=== PATIENT | female | born 1990 | race Caucasian/White ===

== ENCOUNTER 2016-11-05 13:38 | Emergency (ER) | payer OTHER ==
[2016-11-05] MEDS ORDERED: SODIUM CHLORIDE 0.9% 1,000 ML IV ONE (14:09)
[2016-11-05] MEDS ORDERED: ONDANSETRON 4 MG/2 ML VIAL IVP STA (14:09)
[2016-11-05 14:32] LABS: Basophils # (A) 0.1 k/uL (0-0.2); Basophils % (A) 1 %; CH 31.7; CHCM 34.3; Eosinophils # (A) 0.2 k/uL (0-0.7); Eosinophils % (A) 1 %; HCT 44.1 % (34.0-46.0); HDW 2.18; HGB 14.8 gm/dL (11.4-16.0); Luc % (Auto) 1; Lymphocytes # (A) 1.8 k/uL (1.0-4.8); Lymphocytes % (A) 14 %; MCH 31.1 pg (25.0-35.0); MCHC 33.5 g/dL (31.0-37.0); Mean Platelet Volume 6.9; Monocytes # (A) 0.3 k/uL (0-1.0); Monocytes % (A) 3 %; Neutrophils # (A) 10.5 k/uL (1.3-7.7); Neutrophils % (A) 81 %; RBC 4.74 m/uL (3.80-5.40); RDW 14.1 % (11.5-15.5); WBC (Perox) 12.18
[2016-11-05 14:44] LABS: ALT 27 U/L (9-52); AST 22 U/L (14-36); Alkaline Phosphatase 82 U/L (38-126); Anion Gap 13 mmol/L; Blood Urea Nitrogen 15 mg/dL (7-17); Calcium 9.6 mg/dL (8.4-10.2); Carbon Dioxide 23 mmol/L (22-30); Chloride 103 mmol/L (98-107); Glucose 105 mg/dL (74-99); Non-African American GFR(MDRD) >60 (>60 ml/min/1.73 sqM); Potassium 4.1 mmol/L (3.5-5.1); Sodium 139 mmol/L (137-145); Total Bilirubin 0.9 mg/dL (0.2-1.3); Total Protein 7.8 g/dL (6.3-8.2)
--- NOTE | 2016-11-05 14:48 | ED ---
Abdominal Pain HPI - General Chief Complaint: Abdominal Pain Stated Complaint: Abd Pain Time Seen by Provider: 11/05/16 13:48 Source: patient Mode of arrival: ambulatory Limitations: no limitations - History of Present Illness Initial Comments: 26-year-old female with past medical history of one presented for evaluation of lower abdominal cramping that started at 11 AM this morning. She states that onset was gradual and she described as cramping that she thought was more consistent with her. However it continued to progressively worsen with radiation around to the bilateral flanks in the lower back. States is associated nausea and vomiting without associated vaginal bleeding, dysuria, diarrhea, constipation, fevers, or chills. She denies previous a having similar symptoms to this. She states that there is possibility she could be at this time. - Related Data Home Medications Medication Instructions Recorded Confirmed No Known Home Medications [No 11/05/16 11/05/16 Known Home Medications] Allergies Allergy/AdvReac Type Severity Reaction Status Date / Time shellfish derived [Shellfish] Allergy Swelling Verified 11/05/16 14:12 Review of Systems ROS Statement: Those systems with pertinent positive or pertinent negative responses have been documented in the HPI. ROS Other: All systems not noted in ROS Statement are negative. Constitutional: Denies: fever, chills Eyes: Denies: eye pain, eye discharge ENT: Denies: ear pain, throat pain Respiratory: Denies: cough, dyspnea Cardiovascular: Denies: chest pain, palpitations Endocrine: Denies: fatigue, heat or cold intolerance Gastrointestinal: Reports: abdominal pain, nausea, vomiting. Denies: diarrhea, constipation, hematemesis, melena, hematochezia Genitourinary: Denies: urgency, dysuria, frequency, hematuria Musculoskeletal: Denies: back pain, joint swelling, arthralgia, myalgia Skin: Denies: rash, lesions Neurological: Denies: headache, weakness Psychiatric: Denies: anxiety, depression Hematological/Lymphatic: Denies: easy bleeding, easy bruising Past Medical History Past Medical History: No Reported History History of Any Multi-Drug Resistant Organisms: None Reported Past Surgical History: Section Past Anesthesia/Blood Transfusion Reactions: No Reported Reaction Past Psychological History: No Psychological Hx Reported Smoking Status: Current every day smoker Past Alcohol Use History: Rare Past Drug Use History: None Reported - Past Family History Father Family Medical History: No Reported History General Exam Limitations: no limitations General appearance: alert, in no apparent distress Head exam: Present: atraumatic, normocephalic, normal inspection Eye exam: Present: normal appearance, PERRL, EOMI. Absent: scleral icterus, conjunctival injection, periorbital swelling ENT exam: Present: normal exam, mucous membranes moist Neck exam: Present: normal inspection. Absent: tenderness, meningismus, lymphadenopathy Respiratory exam: Present: normal lung sounds bilaterally. Absent: respiratory distress, wheezes, rales, rhonchi, stridor Cardiovascular Exam: Present: regular rate, normal rhythm, normal heart sounds. Absent: systolic murmur, diastolic murmur, rubs, gallop, clicks GI/Abdominal exam: Present: soft, tenderness (Epigastric and lower abdomen), normal bowel sounds. Absent: distended, guarding, rebound, rigid Rectal exam: Present: deferred Extremities exam: Present: normal inspection, full ROM, normal capillary refill. Absent: tenderness, pedal edema, joint swelling, calf tenderness Back exam: Present: normal inspection Neurological exam: Present: alert, oriented X3, CN II-XII intact Psychiatric exam: Present: normal affect, normal mood Skin exam: Present: warm, dry, intact, normal color. Absent: rash Course Vital Signs 11/05/16 11/05/16 11/05/16 13:40 13:54 14:36 Temperature 97.4 F L 97.8 F Pulse Rate 80 67 Respiratory 20 18 Rate Blood Pressure 134/61 137/74 O2 Sat by Pulse 100 97 Oximetry 11/05/16 11/05/16 15:21 16:29 Temperature Pulse Rate 61 64 Respiratory 18 18 Rate Blood Pressure 102/52 104/59 O2 Sat by Pulse 99 98 Oximetry Medical Decision Making - Medical Decision Making 26-year-old female with past history of a previous presented for evaluation of suprapubic/lower abdominal pain since 11 AM this morning. Onset was gradual and progressively worsened throughout the morning and afternoon. There is associated nausea and vomiting. On physical examination the patient is resting comfortably in bed however she does have an emesis been in front of her that she has used once. Abdomen is soft peritoneal signs of guarding, rigidity, or rebound however there is tenderness to the bilateral lower quadrants. Remainder of exam is benign. Concern for urinary tract infection versus ectopic versus pyelonephritis and will obtain labs and urine. Labs are significant for large amounts of hematuria. There is no indication of urinary tract infection however and the test is negative. Given these results a CT abdomen and pelvis without contrast was ordered which was negative for obstructive uropathy. The appendix was visualized with an appendicolith however it was a normal-appearing appendix. The patient was reevaluated multiple times during this period and she continued to have pain despite multiple doses of pain control. She is informed of all results and initially was amenable to admission. However after discussion with her significant other and family member she was unable to find a cook frozen dessert for her child and stated that she would like to leave. She was informed of all potential competitions that could result of her leaving up to and including . She was advised that she could should and could return to the emergency department if her symptoms should worsen or persist and she was given specific instructions for doing so. She was further informed that she would be leaving AGAINST MEDICAL ADVICE and would have to fill all appropriate paperwork. The patient acknowledged an understanding of this information and agreed with this plan of care. - Lab Data Result diagrams: 11/05/16 14:21 11/05/16 14:21 Lab Results 11/05/16 11/05/16 11/05/16 Range/Units 14:21 14:21 14:21 WBC 13.0 H (3.8-10.6) k/uL RBC 4.74 (3.80-5.40) m/uL Hgb 14.8 (11.4-16.0) gm/dL Hct 44.1 (34.0-46.0) % MCV 93.0 (80.0-100.0) fL MCH 31.1 (25.0-35.0) pg MCHC 33.5 (31.0-37.0) g/dL RDW 14.1 (11.5-15.5) % Plt Count 274 (150-450) k/uL Neutrophils % 81 % Lymphocytes % 14 % Monocytes % 3 % Eosinophils % 1 % Basophils % 1 % Neutrophils # 10.5 H (1.3-7.7) k/uL Lymphocytes # 1.8 (1.0-4.8) k/uL Monocytes # 0.3 (0-1.0) k/uL Eosinophils # 0.2 (0-0.7) k/uL Basophils # 0.1 (0-0.2) k/uL Sodium 139 (137-145) mmol/L Potassium 4.1 (3.5-5.1) mmol/L Chloride 103 (98-107) mmol/L Carbon Dioxide 23 (22-30) mmol/L Anion Gap 13 mmol/L BUN 15 (7-17) mg/dL Creatinine 0.61 (0.52-1.04) mg/dL Est GFR (MDRD) Af Amer >60 (>60 ml/min/1.73 sqM) Est GFR (MDRD) Non-Af >60 (>60 ml/min/1.73 sqM) Glucose 105 H (74-99) mg/dL Calcium 9.6 (8.4-10.2) mg/dL Total Bilirubin 0.9 (0.2-1.3) mg/dL AST 22 (14-36) U/L ALT 27 (9-52) U/L Alkaline Phosphatase 82 (38-126) U/L Total Protein 7.8 (6.3-8.2) g/dL Albumin 4.7 (3.5-5.0) g/dL Lipase 82 (23-300) U/L HCG, Qual Not Detected Urine Color Urine Appearance (Clear) Urine pH (5.0-8.0) Ur Specific [place] (1.001-1.035) Urine Protein (Negative) Urine Glucose (UA) (Negative) Urine Ketones (Negative) Urine Blood (Negative) Urine Nitrite (Negative) Urine Bilirubin (Negative) Urine Urobilinogen (<2.0) mg/dL Ur Leukocyte Esterase (Negative) Urine RBC (0-5) /hpf Urine WBC (0-5) /hpf Urine WBC Clumps (None) /hpf Ur Squamous Epith Cells (0-4) /hpf Urine Mucus (None) /hpf 11/05/16 Range/Units 15:47 WBC (3.8-10.6) k/uL RBC (3.80-5.40) m/uL Hgb (11.4-16.0) gm/dL Hct (34.0-46.0) % MCV (80.0-100.0) fL MCH (25.0-35.0) pg MCHC (31.0-37.0) g/dL RDW (11.5-15.5) % Plt Count (150-450) k/uL Neutrophils % % Lymphocytes % % Monocytes % % Eosinophils % % Basophils % % Neutrophils # (1.3-7.7) k/uL Lymphocytes # (1.0-4.8) k/uL Monocytes # (0-1.0) k/uL Eosinophils # (0-0.7) k/uL Basophils # (0-0.2) k/uL Sodium (137-145) mmol/L Potassium (3.5-5.1) mmol/L Chloride (98-107) mmol/L Carbon Dioxide (22-30) mmol/L Anion Gap mmol/L BUN (7-17) mg/dL Creatinine (0.52-1.04) mg/dL Est GFR (MDRD) Af Amer (>60 ml/min/1.73 sqM) Est GFR (MDRD) Non-Af (>60 ml/min/1.73 sqM) Glucose (74-99) mg/dL Calcium (8.4-10.2) mg/dL Total Bilirubin (0.2-1.3) mg/dL AST (14-36) U/L ALT (9-52) U/L Alkaline Phosphatase (38-126) U/L Total Protein (6.3-8.2) g/dL Albumin (3.5-5.0) g/dL Lipase (23-300) U/L HCG, Qual Urine Color Light Red Urine Appearance Cloudy H (Clear) Urine pH 6.0 (5.0-8.0) Ur Specific [place] 1.025 (1.001-1.035) Urine Protein 2+ H (Negative) Urine Glucose (UA) Negative (Negative) Urine Ketones 3+ H (Negative) Urine Blood Large H (Negative) Urine Nitrite Negative (Negative) Urine Bilirubin Negative (Negative) Urine Urobilinogen 2.0 (<2.0) mg/dL Ur Leukocyte Esterase Trace H (Negative) Urine RBC >182 H (0-5) /hpf Urine WBC 6 H (0-5) /hpf Urine WBC Clumps Occasional H (None) /hpf Ur Squamous Epith Cells 7 H (0-4) /hpf Urine Mucus Many H (None) /hpf Disposition Clinical Impression: Intractable abdominal pain, Nausea and vomiting, Hematuria Disposition: Left Against Medical Advice Condition: Stable Instructions: Kidney Stones (ED), Hematuria (ED), Acute Abdominal Pain (ED), Abdominal Pain (ED) Additional Instructions: Although you're leaving AGAINST MEDICAL ADVICE it is advised to follow up with your primary care physician tomorrow. If you cannot see your primary care physician tomorrow you must come back to the ED within 24 hours for repeat abdominal examination. If your symptoms should worsen or persist overnight you must come back to the ED. If he should develop nausea or vomiting that he can' t control this is also an indication to return to the emergency department. If your abdomen should become distended, firm, or the pain should become unbearable he must return to the emergency department. Please call your primary care doctor as early as possible tomorrow morning. Referrals: None,Stated [Primary Care Provider] - 1-2 days Time of Disposition: 18:37
[2016-11-05] MEDS ORDERED: KETOROLAC 30 MG/ML 1 ML VIAL IVP STA (15:13)
[2016-11-05] MEDS ORDERED: MORPHINE SULFATE 4 MG/ML SYRINGE IVP STA ×2 (15:13→16:43)
[2016-11-05 16:17] LABS: Appearance,Urine Cloudy (Clear); Bilirubin,Urine Negative (Negative); Glucose,Urine (UA) Negative (Negative); Ketones,Urine 3+ (Negative); Leukocyte Esterase,Urine Trace (Negative); Mucus,Urine Many /hpf; Nitrite,Urine Negative (Negative); Particle Count 8781; Protein,Urine 2+ (Negative); RBC,Urine >182 /hpf (0-5); Specific Gravity,Urine 1.025 (1.001-1.035); Squamous Epithelial Cell,Urine 7 /hpf (0-4); UA Billing (MACRO vs. MICRO) MICRO; WBC,Urine 6 /hpf (0-5)
--- NOTE | 2016-11-05 17:32 | CT ---
EXAMINATION TYPE: CT renal stones wo con DATE OF EXAM: 11/05/2016 COMPARISON: NONE HISTORY: 26-year-old female with bilateral pelvic and flank pain. TECHNIQUE: Contiguous axial scanning of the abdomen and pelvis without IV contrast. Coronal and sagit diego reconstructions performed. CT DLP: 759.00 mGycm Automated exposure control for dose reduction was used. FINDINGS: The heart is normal size without pericardial effusion. Lung bases are clear without pleural effusion. Noncontrast appearance of the liver, gallbladder, adrenal glands, spleen, and pancreas show no gross abnormality. Some slight increased areas of density in the region of the medullary appearance suggests some concen trated renal salts. No discrete renal calculus is seen and no hydronephrosis No definite suspicious calcification seen along the course of either ureter. Scattered nonenlarged mesenteric lymph nodes. No dilated small bowel, free fluid, or free air. Normal appendix is visualized with a tiny 4 mm appendicolith. No significant stool burden. Bladder is partially urine distended. Bilateral pelvic phleboliths are noted. Uterus and both ovaries are visualized. No abnormal fluid collection in the pelvis. Bones: No osseous destructive process. IMPRESSION: SUGGESTION OF SOME FAINT CONCENTRATING RENAL SALTS IN THE REGION OF THE MEDULLARY PYRAMIDS. NO DISCR ETE RENAL CALCULUS OR HYDRONEPHROSIS.
[2016-11-05] MEDS ORDERED: HYDROcodone/APAP 5-325MG 1 EACH TAB PO STA (19:06)
[2016-11-05 19:15] VITALS: BP 109/59; PULSE 57; RESP 16; TEMP 98.9
== END 2016-11-05 19:15 | disposition left against medical advice (07) ==
LOC: EC 13:38
DX: R10.30 Lower abdominal pain, unspecified (principal); R11.2 Nausea with vomiting, unspecified; R31.9 Hematuria, unspecified; M54.5 Low back pain; K38.1 Appendicular concretions; F17.200 Nicotine dependence, unspecified, uncomplicated; Z91.013 Allergy to seafood; Z98.890 Other specified postprocedural states
CPT/HCPCS: 99284; 96374; 96375 ×2; 96376; 96361 ×4; 36415; 80053; 83690; 85025; 81001; 84703; 74150; J2270; J2405; J1885

== ENCOUNTER 2020-11-07 14:03 | Emergency (ER) | payer OTHER ==
[2020-11-07] MEDS ORDERED: METOCLOPRAMIDE 5 MG/ML 2 ML VIAL IVP STA (14:48)
[2020-11-07] MEDS ORDERED: diphenhydrAMINE 50 MG/ML 1 ML VIAL IVP STA (14:48)
[2020-11-07] MEDS ORDERED: SODIUM CHLORIDE 0.9% 1,000 ML IV STA (14:48)
[2020-11-07] MEDS ORDERED: FAMOTIDINE 20 MG/2 ML VIAL IV STA (14:48)
[2020-11-07] MEDS ORDERED: KETOROLAC 15 MG/ML 1 ML VIAL IVP STA (14:54)
--- NOTE | 2020-11-07 15:34 | ED ---
Abdominal Pain HPI - General Chief Complaint: Abdominal Pain Stated Complaint: Abdominal Pain Time Seen by Provider: 11/07/20 14:18 Source: patient Mode of arrival: ambulatory Limitations: no limitations - History of Present Illness Initial Comments: 30-year-old female presents to emergency prompt with a chief complaint of abdominal pain. Patient reports she experienced similar pain about 4 years ago and it felt exactly like this when she was on her menstrual period. Patient reports currently she is on her menstrual period and the pain was somewhat of a sudden onset located in the lower abdominal region. Patient reports it is slightly worse on the right side. She reports nausea and multiple episodes of nonbilious and nonbloody vomiting. States the pain was sharp until the paramedics arrived and she was given symptomatically. She denies any diarrhea or constipation. Denies any possibility of at this time. Denies any vaginal discharge, itching or foul smell. Denies dysuria, increased urgency or frequency. No previous abdominal surgeries aside from a . - Related Data Home Medications Medication Instructions Recorded Confirmed Acetaminophen Tab [Tylenol Tab] 500 mg PO Q6H PRN 11/07/20 11/07/20 Allergies Allergy/AdvReac Type Severity Reaction Status Date / Time shellfish derived [Shellfish] Allergy Swelling Verified 11/07/20 14:45 Review of Systems ROS Statement: Those systems with pertinent positive or pertinent negative responses have been documented in the HPI. ROS Other: All systems not noted in ROS Statement are negative. Past Medical History Past Medical History: No Reported History History of Any Multi-Drug Resistant Organisms: None Reported Past Surgical History: Section Past Anesthesia/Blood Transfusion Reactions: No Reported Reaction Past Psychological History: No Psychological Hx Reported Smoking Status: Current every day smoker Past Alcohol Use History: Rare Past Drug Use History: None Reported - Past Family History Father Family Medical History: No Reported History General Exam Limitations: no limitations General appearance: alert, in no apparent distress Head exam: Present: atraumatic, normocephalic, normal inspection Eye exam: Present: normal appearance, PERRL, EOMI Pupils: Present: normal accommodation ENT exam: Present: normal exam, normal oropharynx, mucous membranes moist Neck exam: Present: normal inspection, full ROM. Absent: tenderness Respiratory exam: Present: normal lung sounds bilaterally. Absent: respiratory distress, wheezes, rales, rhonchi, stridor Cardiovascular Exam: Present: regular rate, normal rhythm, normal heart sounds. Absent: systolic murmur GI/Abdominal exam: Present: soft, tenderness (Mild lower abdominal tenderness). Absent: distended Extremities exam: Present: normal inspection, full ROM, normal capillary refill. Absent: tenderness, pedal edema, joint swelling Back exam: Present: normal inspection, full ROM. Absent: tenderness, CVA tenderness (R), CVA tenderness (L) Neurological exam: Present: alert, oriented X3 Psychiatric exam: Present: normal affect, normal mood Skin exam: Present: warm, dry, intact, normal color Course Vital Signs 11/07/20 14:14 Temperature 97.6 F Pulse Rate 64 Respiratory 18 Rate Blood Pressure 116/55 O2 Sat by Pulse 98 Oximetry Medical Decision Making - Medical Decision Making 30-year-old female presents to emergency prompt with a chief complaint of abdominal pain. On physical examination, mostly lower abdominal tenderness. Transvaginal ultrasound performed to rule out an ovarian torsion. No acute findings on the ultrasound. CBC reveals mild leukocytosis which I suspect is reactive secondary to vomiting. UA positive for hematuria but no signs of urinary tract infection. Ketones also noted. Mild elevation in BUN. Likely suggesting dehydration. Patient was given IV bolus fluids. Patient was not given any analgesics in the emergency department only antiemetics. Advised the patient to follow up with a health care technician. Return parameters were thoroughly discussed with patient understanding and agreeable. Case discussed with Dr. Jeronimo. - Lab Data Result diagrams: 11/07/20 15:20 11/07/20 15:20 Lab Results 11/07/20 11/07/20 11/07/20 Range/Units 15:20 15:20 15:20 WBC 12.9 H (3.8-10.6) k/uL RBC 3.78 L (3.80-5.40) m/uL Hgb 12.6 (11.4-16.0) gm/dL Hct 36.2 (34.0-46.0) % MCV 95.7 (80.0-100.0) fL MCH 33.2 (25.0-35.0) pg MCHC 34.7 (31.0-37.0) g/dL RDW 12.5 (11.5-15.5) % Plt Count 216 (150-450) k/uL MPV 8.1 Neutrophils % 84 % Lymphocytes % 12 % Monocytes % 3 % Eosinophils % 0 % Basophils % 0 % Neutrophils # 10.8 H (1.3-7.7) k/uL Lymphocytes # 1.6 (1.0-4.8) k/uL Monocytes # 0.3 (0-1.0) k/uL Eosinophils # 0.1 (0-0.7) k/uL Basophils # 0.0 (0-0.2) k/uL Sodium 139 (137-145) mmol/L Potassium 3.9 (3.5-5.1) mmol/L Chloride 106 (98-107) mmol/L Carbon Dioxide 21 L (22-30) mmol/L Anion Gap 12 mmol/L BUN 19 H (7-17) mg/dL Creatinine 0.57 (0.52-1.04) mg/dL Est GFR (CKD-EPI)AfAm >90 (>60 ml/min/1.73 sqM) Est GFR (CKD-EPI)NonAf >90 (>60 ml/min/1.73 sqM) Glucose 120 H (74-99) mg/dL Calcium 9.4 (8.4-10.2) mg/dL Total Bilirubin 0.8 (0.2-1.3) mg/dL AST 24 (14-36) U/L ALT 12 (4-34) U/L Alkaline Phosphatase 54 (38-126) U/L Total Protein 7.1 (6.3-8.2) g/dL Albumin 4.4 (3.5-5.0) g/dL Amylase 55 (30-110) U/L Lipase 66 (23-300) U/L Urine Color Yellow Urine Appearance Cloudy H (Clear) Urine pH 6.0 (5.0-8.0) Ur Specific [place] 1.038 H (1.001-1.035) Urine Protein 2+ H (Negative) Urine Glucose (UA) Trace H (Negative) Urine Ketones 3+ H (Negative) Urine Blood Moderate H (Negative) Urine Nitrite Negative (Negative) Urine Bilirubin Negative (Negative) Urine Urobilinogen 4.0 (<2.0) mg/dL Ur Leukocyte Esterase Trace H (Negative) Urine RBC 87 H (0-5) /hpf Urine WBC 5 (0-5) /hpf Ur Squamous Epith Cells 2 (0-4) /hpf Urine Bacteria Rare H (None) /hpf Urine Mucus Many H (None) /hpf Disposition Clinical Impression: Abdominal pain Disposition: HOME SELF-CARE Condition: Stable Instructions (If sedation given, give patient instructions): Abdominal Pain (ED) Additional Instructions: Please return to the Emergency Department if symptoms worsen or any other concerns. Is patient prescribed a controlled substance at d/c from ED?: No Referrals: None,Stated [Primary Care Provider] - 1-2 days Derrick De Jesus DO [Doctor of Osteopathic Medicine] - 1-2 days Time of Disposition: 16:50
--- NOTE | 2020-11-07 15:44 | US ---
EXAMINATION TYPE: US transvaginal DATE OF EXAM: 11/07/2020 COMPARISON: NONE CLINICAL HISTORY: pelvic pain, concern for torsion. Generalized pelvic pain. TECHNIQUE: Transvaginal (TV) grayscale sonographic images were obtained of the pelvic structures. Co blanco Doppler and spectral waveform analysis were utilized.. Date of LMP: September 2020, EXAM MEASUREMENTS: Uterus: 7.5 x 3.7 x 3.1 cm Endometrial Stripe: 0.9 cm Right Ovary: 3.5 x 2.1 x 2.0 cm Left Ovary: 2.6 x 2.3 x 1.5 cm 1. Uterus: Anteverted Heterogenous 2. Endometrium: wnl 3. Right Ovary: complex lesion with peripheral vascular flow - 1.9 x 1.2 x 1.4 cm 4. Left Ovary: follicles Spectral, color and waveform doppler imaging shows good arterial and venous flow within the ovaries ; there is no evidence for ovarian torsion. 5. Bilateral Adnexa: wnl 6. Posterior cul-de-sac: no free fluid IMPRESSION: 1. No evidence of ovarian torsion. 2. Complex right ovarian follicle which may represent an involuting corpus luteum.
[2020-11-07 15:58] LABS: Basophils % (A) 0 %; Eosinophils # (A) 0.1 k/uL (0-0.7); Eosinophils % (A) 0 %; HCT 36.2 % (34.0-46.0); HGB 12.6 gm/dL (11.4-16.0); Lymphocytes # (A) 1.6 k/uL (1.0-4.8); Lymphocytes % (A) 12 %; MCH 33.2 pg (25.0-35.0); MCHC 34.7 g/dL (31.0-37.0); MCV 95.7 fL (80.0-100.0); Mean Platelet Volume 8.1; Monocytes # (A) 0.3 k/uL (0-1.0); Monocytes % (A) 3 %; Neutrophils # (A) 10.8 k/uL (1.3-7.7); Neutrophils % (A) 84 %; Platelet Count 216 k/uL (150-450); RBC 3.78 m/uL (3.80-5.40); RDW 12.5 % (11.5-15.5); WBC 12.9 k/uL (3.8-10.6)
[2020-11-07 16:10] LABS: ALT 12 U/L (4-34); AST 24 U/L (14-36); African American GFR (CKD) >90 (>60 ml/min/1.73 sqM); Albumin 4.4 g/dL (3.5-5.0); Alkaline Phosphatase 54 U/L (38-126); Amylase 55 U/L (30-110); Anion Gap 12 mmol/L; Blood Urea Nitrogen 19 mg/dL (7-17); Calcium 9.4 mg/dL (8.4-10.2); Carbon Dioxide 21 mmol/L (22-30); Chloride 106 mmol/L (98-107); Glucose 120 mg/dL (74-99); Lipase 66 U/L (23-300); Non-African American GFR(CKD) >90 (>60 ml/min/1.73 sqM); Potassium 3.9 mmol/L (3.5-5.1); Sodium 139 mmol/L (137-145); Total Bilirubin 0.8 mg/dL (0.2-1.3); Total Protein 7.1 g/dL (6.3-8.2)
[2020-11-07 16:11] LABS: Appearance,Urine Cloudy (Clear); Bacteria,Urine Rare /hpf; Bilirubin,Urine Negative (Negative); Blood,Urine Moderate (Negative); Color,Urine Yellow; Glucose,Urine (UA) Trace (Negative); Ketones,Urine 3+ (Negative); Leukocyte Esterase,Urine Trace (Negative); Mucus,Urine Many /hpf; Nitrite,Urine Negative (Negative); Protein,Urine 2+ (Negative); RBC,Urine 87 /hpf (0-5); Specific Gravity,Urine 1.038 (1.001-1.035); Squamous Epithelial Cell,Urine 2 /hpf (0-4); WBC,Urine 5 /hpf (0-5)
[2020-11-07 17:10] LABS: HCG,Qualitative Serum Not Detected
[2020-11-07 17:15] VITALS: BP 108/61; PULSE 52; RESP 16; TEMP 98.9
== END 2020-11-07 17:14 | disposition home or self-care (01) ==
LOC: EC 14:03
DX: R10.31 Right lower quadrant pain (principal); F17.200 Nicotine dependence, unspecified, uncomplicated
CPT/HCPCS: 99284; 96374; 96375 ×3; 96361; 36415; 80053; 82150; 83690; 85025; 81001; 84703; 93975; 76830; J1200; J2765; J1885

== ENCOUNTER → 2021-09-01 | Outpatient (CLI) | payer OTHER ==
--- NOTE | 2021-09-01 17:16 | US ---
EXAMINATION TYPE: Transabdominal DATE OF EXAM: 09/01/2021 4:34 PM COMPARISON: NONE CLINICAL HISTORY: Z36.89 CONFIRM GESTATIONAL AGE AND VIABILITY. Confirmation of dates. Positive beta hCG test. EXAM PERFORMED: Transabdominal (TA) EXAM MEASUREMENTS: GESTATIONAL AGE / DATING Physician Established: Not yet established Dates by LMP: (11weeks/6 days) EDC: 03/17/2022 Dates by First Scan: No previous this is first scan Dates by Current Scan for: (13weeks/6 days) EDC: 03/03/2022 MATERNAL ANATOMY Uterus: 12.2 x 1.7 x 9.9cm Right Ovary: 4.2 x 2.5 x 3.9cm Left Ovary: 3.9 x 2.5 x 1.9cm Post CDS / Adnexa: No abnormalities seen Presence of free fluid: No Presence of corpus luteal cyst: Yes measures approximately 1.5cm in Right Ovary Presence of subchorionic bleed: No GESTATION / SURVEY CRL:7.77 cm 13 weeks/6 days Yolk Sac (normal less than 6mm): Non vis on today's exam Heart Rate: 153 bpm Rhythm: Normal IUP: Viable IUP Date of LMP: 06/10/2021 Beta HcG (if available): Not available Viable IUP seen on today's exam Anteverted uterus. Single live intrauterine gestation confirmed as gestational sac and pole are present. No yolk sac is seen. Both ovaries are identified. Within the right ovary there is a 1.5 cm thin-walled cysts could reflect corpus luteal cyst. No suspicious extra ovarian adnexal lesion. IMPRESSION: Single live intrauterine gestation is confirmed, mean crown-rump length 7.8 cm correspond ing to 13 weeks 6 day old fetus.
== END | disposition home or self-care (01) ==
LOC: RADUSWWP 15:29
PROVIDERS: ATTEND Obstetrics & Gynecology
DX: Z36.89 Encounter for other specified antenatal screening (principal); Z3A.13 13 weeks gestation of pregnancy
CPT/HCPCS: 76801

== ENCOUNTER 2022-02-28 06:01 | Inpatient (IN) | payer OTHER ==
[2022-02-20 12:08] VITALS: BMI 33.6
--- NOTE | 2022-02-27 19:28 | P.HPOB ---
History of Present Illness H&P Date: 02/27/22 Chief Complaint: Repeat with tubal ligation This is a 31 y.o. female, 4, para 1, with an estimated date of confinement of 03/03/2022, estimated gestational age of 39-4/7 weeks, who presents for repeat low transverse section with bilateral tubal ligation for family planning. She has been feeling good movement and irregular contractions. Prental course has been uncomplicated. labs: Hepatitis B surface antigen-neg RPR-NR [id number] Blood type-A+ Antibody screen-neg Hemoglobin-13.3 Random glucose-86 1 hr. GTT-166; Repeat 1 hr. GTT-107 GBS-neg OBHx: . Hx 1 delivery due to failure to progress. History of 2 elective terminations. 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 Unemployed. Review of Systems Constitutional: Denies chills, Denies fever Eyes: denies blurred vision, denies pain Ears, nose, mouth and throat: Denies headache, Denies sore throat Cardiovascular: Denies chest pain, Denies shortness of breath Respiratory: Denies cough Gastrointestinal: Reports abdominal pain (irregular contractions) Genitourinary: Reports pelvic pain, Reports Musculoskeletal: Reports low back pain Integumentary: Denies pruritus, Denies rash Neurological: Denies numbness, Denies weakness Psychiatric: Denies anxiety, Denies depression Past Medical History Past Medical History: No Reported History History of Any Multi-Drug Resistant Organisms: None Reported Past Surgical History: Section Past Anesthesia/Blood Transfusion Reactions: No Reported Reaction Past Psychological History: No Psychological Hx Reported Smoking Status: Former smoker, Vaper Past Alcohol Use History: Rare Additional Past Alcohol Use History / Comment(s): Quit smoking over a year ago and started vaping "a limited amount." Rare alcohol use prior to , none now. Past Drug Use History: None Reported - Past Family History Father Family Medical History: No Reported History Medications and Allergies Home Medications Medication Instructions Recorded Confirmed Type Vit No.179/Iron/Folic 1 each PO DAILY 02/20/22 02/28/22 History [ Tablet] Allergies Allergy/AdvReac Type Severity Reaction Status Date / Time shellfish derived [Shellfish] Allergy Swelling Verified 02/28/22 06:21 Exam Osteopathic Statement: *. No significant issues noted on an osteopathic structural exam other than those noted in the History and Physical/Consult. HEENT: within normal limits Heart: regular rate and rhythm Lungs: clear to auscultation Abdomen: , non-tender Cervix: closed/60%/-2 heart tones: 140's by doppler Extremities: neg. Dixon's Results Result Diagrams: 02/28/22 06:25 Assessment and Plan (1) Previous section complicating Current Visit: No Status: Acute Code(s): O34.219 - MATERNAL CARE FOR UNSP TYPE SCAR FROM PREVIOUS DEL SNOMED Code(s): 015339994 (2) 39 weeks gestation of Current Visit: No Status: Acute Code(s): Z3A.39 - 39 WEEKS GESTATION OF SNOMED Code(s): 39446930 (3) Family planning Current Visit: No Status: Acute Code(s): Z30.09 - ENCOUNTER FOR OT GENERAL CNSL AND ADVICE ON CONTRACEPTION SNOMED Code(s): 010841557 Plan: Proceed with repeat delivery with bilateral partial salpingectomy. I have discussed the risks, benefits, and alternative therapies for the above- mentioned procedure and for both sedation/anesthesia as well as necessary blood products administration, if indicated, as they pertain to this patient. The patient has indicated her understanding and acceptance of the risks and procedures discussed.
[2022-02-28] MEDS ORDERED: CITRIC ACID-SODIUM CITRATE 15 ML CUP PO ONE (06:20)
[2022-02-28] MEDS ORDERED: LACTATED RINGERS 1,000 ML IV ONE (06:20)
[2022-02-28] MEDS ORDERED: LIDOCAINE 1% (10MG/ML) FOR IV START INTRADERMA PRN (06:20)
[2022-02-28 06:48] LABS: Basophils % (A) 0 %; Eosinophils # (A) 0.2 k/uL (0-0.7); Eosinophils % (A) 3 %; HCT 35.3 % (34.0-46.0); Lymphocytes # (A) 1.9 k/uL (1.0-4.8); Lymphocytes % (A) 25 %; MCHC 36.8 g/dL (31.0-37.0); MCV 92.4 fL (80.0-100.0); Mean Platelet Volume 8.7; Monocytes # (A) 0.3 k/uL (0-1.0); Monocytes % (A) 4 %; Neutrophils # (A) 4.8 k/uL (1.3-7.7); Neutrophils % (A) 65 %; Platelet Count 206 k/uL (150-450); RBC 3.82 m/uL (3.80-5.40); RDW 13.7 % (11.5-15.5); WBC 7.3 k/uL (3.8-10.6)
[2022-02-28] MEDS: LACTATED RINGERS 1,000 ML IV SCH (06:58)
[2022-02-28] MEDS ORDERED: fentaNYL (PF) 50 MCG/ML 2 ML AMP ONE (08:00)
[2022-02-28] MEDS ORDERED: KETOROLAC 15 MG/ML 1 ML VIAL ONE (08:00)
[2022-02-28] MEDS ORDERED: OXYTOCIN 30 UNITS/500 ML NS BAG IV ONE (08:00)
[2022-02-28] MEDS ORDERED: NALBUPHINE 10 MG/ML (1 ML AMP) ONE (08:00)
[2022-02-28] MEDS ORDERED: MIDAZOLAM 2 MG/2 ML VIAL ONE (08:00)
[2022-02-28] MEDS ORDERED: ONDANSETRON 4 MG/2 ML VIAL ONE (08:00)
[2022-02-28] MEDS ORDERED: MORPHINE SULFATE (PF) 0.3 MG/0.3 ML SYR ONE (08:00)
[2022-02-28] MEDS ORDERED: NALBUPHINE 10 MG/ML (1 ML AMP) IV PRN (08:41)
[2022-02-28] MEDS ORDERED: HYDROmorphone 0.5 MG/0.5 ML SYRINGE IVP PRN ×2 (08:41→08:54)
[2022-02-28] MEDS ORDERED: NALOXONE 0.4 MG/ML 1 ML VIAL IV PRN ×2 (08:41→08:54)
[2022-02-28] MEDS ORDERED: ONDANSETRON 4 MG/2 ML VIAL IVP PRN ×2 (08:41→08:54)
--- NOTE | 2022-02-28 08:52 | P.OP ---
Date of Procedure: 02/28/22 Preoperative Diagnosis: 1. Intrauterine at 39-4/7 weeks. 2. History of previous section. 3. Family-planning. Postoperative Diagnosis: Same Procedure(s) Performed: Repeat low transverse section with bilateral partial salpingectomy Anesthesia: spinal (Duramorph) Surgeon: Juju Ashby Feed Miller #1: Jay Ochoa Estimated Blood Loss (ml): 250 Pathology: other (Portions of right and left fallopian tubes) Condition: stable Disposition: floor Indications for Procedure: This is a 31-year-old female 4 para 1 at 39-4/7 weeks who presents for scheduled repeat section with bilateral partial salpingectomy for family planning. I have discussed the risks, benefits, and alternative therapies for the above- mentioned procedure and for both sedation/anesthesia as well as necessary blood products administration, if indicated, as they pertain to this patient. The patient has indicated her understanding and acceptance of the risks and procedures discussed. Operative Findings: A viable male infant is noted in the vertex presentation with scores of 8 at 1 minute and 9 at 5 minutes and infant weight of 8 lbs. 1 oz.. Normal uterus tubes and ovaries are noted. Description of Procedure: The patient is taken to the operating room where she is placed in the dorsal supine position with leftward tilt after spinal Duramorph anesthesia is given. She is prepped and draped in the normal sterile fashion. Skin was tested and found to be adequately anesthetized. A Pfannenstiel skin incision was made with a scalpel through the previous laparotomy scar. A second knife was used to carry the incision down to the underlying layer of fascia. The fascia was nicked in the midline with a scalpel and then extended laterally bilaterally with Baez scissors. The anterior lip of the fascia was grasped with 2 George clamps and then dissected off the underlying rectus muscle in the midline with Baez scissors. The inferior aspect of the fascial incision was grasped with 2 George clamps and dissected off the underlying rectus muscle and the midline with Baez scissors. Next the peritoneum layer was tented up with 2 hemostats and then entered sharply with the scalpel. The incision is extended superiorly and inferiorly with Metzenbaum scissors. Next a DeLee retractor is placed. The vesicouterine peritoneum is entered sharply with Metzenbaum scissors and extended laterally bilaterally with Metzenbaum scissors and then the bladder flap is pushed inferiorly. The lower uterine segment is incised in transverse fashion with the scalpel and then bluntly entered with a hemostat. Clear fluid is noted. The incision was then extended laterally bilaterally with 2 fingers. Next the 's head is delivered through the incision. Nose and mouth are bulb suctioned. The remainder of the is easily delivered and placed on mother's abdomen. Cord is clamped and cut. Infant is taken to warmer by nursing staff. Uterine fundus is gently massaged and placenta is delivered manually. Uterus is exteriorized and cleared of all clots and debris. Uterine incision is closed with 0 Vicryl suture in a running locked fashion. A second layer of 0 Vicryl suture is used in a running fashion for hemostasis. The vesicouterine peritoneum was noted to be hemostatic and was not reapproximated due to scarring. Attention is then turned to the tubes. The right fallopian tube is grasped in the midportion with a hemostat. The mesosalpinx is entered with Bovie cautery. 0 Vicryl suture is tied 2 times around both the proximal and distal portion of the tubes. The knuckle of tube was then removed with Metzenbaum scissors. The ends of the tubes are then cauterized with Bovie cautery. The same procedure is carried out on the left fallopian tube. Posterior cul-de-sac is suctioned of all clots and debris. Uterus is returned to the abdomen. Incision is noted to be hemostatic. Peritoneal layer is closed with 0 Vicryl suture in a running fashion. Muscle layer is reapproximated with 0 Vicryl suture in interrupted fashion. Fascia layer is then closed with 0 PDS suture with 2 sutures meeting in the midline and the knots buried in either side and in the midline. The subcutaneous tissue was then closed with 2-0 Vicryl suture. Skin layer was then closed with eulalia. All sponge and needle counts are correct. The patient is taken to recovery room in stable condition.
[2022-02-28] MEDS ORDERED: OXYTOCIN 30 UNITS/500 ML NS 30 UNIT in SALINE 1 500ML.BAG IV SCH (08:54)
[2022-02-28] MEDS ORDERED: diphenhydrAMINE 50 MG/ML 1 ML VIAL IVP PRN ×2 (08:54)
[2022-02-28] MEDS ORDERED: ZOLPIDEM 5 MG TAB PO PRN (08:54)
[2022-02-28] MEDS ORDERED: METOCLOPRAMIDE 5 MG/ML 2 ML VIAL IVP PRN (08:54)
[2022-02-28] MEDS ORDERED: diphenhydrAMINE 50 MG CAP PO PRN (08:54)
[2022-02-28] MEDS ORDERED: SIMETHICONE 80 MG CHEWABLE PO PRN (08:54)
[2022-02-28] MEDS ORDERED: diphenhydrAMINE 25 MG CAP PO PRN (08:54)
[2022-02-28] MEDS ORDERED: LANOLIN CREAM 5 GM TUBE TOPICAL PRN (08:54)
[2022-02-28] MEDS ORDERED: MEASLES-MUMPS-RUBELLA VACC/PF 12,500 UNIT/0.5 ML VIAL SQ ONE (08:54)
[2022-02-28] MEDS ORDERED: HYDROmorphone 1 MG/ML 1 ML SYRINGE IVP PRN (08:54)
[2022-02-28] MEDS: ACETAMINOPHEN TAB 500 MG TAB PO SCH ×2 (11:18→23:37)
[2022-02-28] MEDS: SENNOSIDES-DOCUSATE SODIUM 1 EACH TAB PO SCH ×2 (11:27→20:17)
[2022-02-28] MEDS: ACETAMINOPHEN IV (For NPO) 1,000 MG in EMPTY BAG 1 BAG IVPB SCH (11:28)
[2022-02-28] MEDS: KETOROLAC 15 MG/ML 1 ML VIAL IVP SCH ×2 (13:57→20:16)
[2022-02-28] MEDS: IBUPROFEN 600 MG TAB PO SCH (16:14)
[2022-03-01] MEDS: ACETAMINOPHEN IV (For NPO) 1,000 MG in EMPTY BAG 1 BAG IVPB SCH (01:57)
[2022-03-01] MEDS: LACTATED RINGERS 1,000 ML IV SCH (02:03)
[2022-03-01] MEDS: KETOROLAC 15 MG/ML 1 ML VIAL IVP SCH ×2 (04:33→15:46)
[2022-03-01] MEDS: IBUPROFEN 600 MG TAB PO SCH ×4 (05:16→23:44)
--- NOTE | 2022-03-01 07:31 | P.PN ---
Progress Note - Text Progress Note Date: 03/01/22 Postop day 1 from under spinal anesthesia with intrathecal morphine given for postop pain management. Patient is doing well. Pain is well controlled. On visual analog scale 4/10 Mild itching present No nausea or vomiting reported. No Headache or weakness and numbness in the legs. No complications from spinal anesthesia.
[2022-03-01 08:33] LABS: Basophils % (A) 0 %; Eosinophils # (A) 0.1 k/uL (0-0.7); Eosinophils % (A) 1 %; HCT 31.1 % (34.0-46.0); HGB 10.9 gm/dL (11.4-16.0); Lymphocytes # (A) 1.3 k/uL (1.0-4.8); Lymphocytes % (A) 14 %; MCH 33.1 pg (25.0-35.0); MCHC 34.9 g/dL (31.0-37.0); MCV 94.8 fL (80.0-100.0); Mean Platelet Volume 8.7; Monocytes # (A) 0.3 k/uL (0-1.0); Monocytes % (A) 4 %; Neutrophils # (A) 7.2 k/uL (1.3-7.7); Neutrophils % (A) 79 %; Platelet Count 170 k/uL (150-450); RBC 3.28 m/uL (3.80-5.40); RDW 13.6 % (11.5-15.5)
--- NOTE | 2022-03-01 09:14 | P.PNOBGPC ---
Subjective - Subjective Principal diagnosis: Status post repeat low transverse section with TL POD #1 Interval history: Patient is doing well. She is ambulating. She is passing flatus but no bowel movement yet. She has not been able to urinate yet. Pain is fairly well controlled. She is breast-feeding. Patient reports: Reports pain well controlled, Reports ambulating normally, Denies voiding normally [place]: doing well, nursing well Objective - Vital Signs Latest vital signs: Vital Signs Temp Pulse Resp BP Pulse Ox 03/01/22 04:00 97.9 F 64 15 114/63 03/01/22 00:00 97.7 F 68 15 120/69 96 02/28/22 20:00 97.6 F 67 19 138/90 98 02/28/22 16:00 98.0 F 61 16 110/56 95 02/28/22 15:00 16 98 02/28/22 13:00 97 02/28/22 11:05 96.3 F L 74 16 97/52 97 02/28/22 10:53 71 16 116/60 97 02/28/22 10:23 69 16 118/58 97 02/28/22 09:53 69 16 110/56 97 02/28/22 09:38 69 16 113/56 97 02/28/22 09:23 72 16 123/65 90 L Intake and Output 02/28/22 03/01/22 03/01/22 22:59 06:59 14:59 Intake Total 880 480 Output Total 850 700 Balance 30 -220 Intake: Oral 880 480 Output: Urine 850 700 Uretheral (Burger) 600 700 - Exam Extremities: Present: normal, edema (Trace). Absent: tenderness Abdomen: Present: normal appearance, soft (Positive bowel sounds 4). Absent: distention, tenderness Incision: Present: normal, dry, intact. Absent: erythematous Uterus: Present: normal, firm. Absent: tenderness - Labs Labs: Abnormal Lab Results - Last 24 Hours (Table) 03/01/22 Range/Units 08:13 RBC 3.28 L (3.80-5.40) m/uL Hgb 10.9 L (11.4-16.0) gm/dL Hct 31.1 L (34.0-46.0) % Assessment and Plan Assessment: Status post repeat low transverse section with bilateral partial esophagectomy postoperative day #1 (1) Previous section complicating Current Visit: No Status: Acute Code(s): O34.219 - MATERNAL CARE FOR UNSP TYPE SCAR FROM PREVIOUS DEL SNOMED Code(s): 035667058 (2) 39 weeks gestation of Current Visit: No Status: Acute Code(s): Z3A.39 - 39 WEEKS GESTATION OF SNOMED Code(s): 66858215 (3) Family planning Current Visit: No Status: Acute Code(s): Z30.09 - ENCOUNTER FOR OT GENERAL CNSL AND ADVICE ON CONTRACEPTION SNOMED Code(s): 690667589 Plan: Continue with postoperative and care today. Will continue to work on bladder training. Anticipate discharge home tomorrow as long as she feels well.
[2022-03-01] MEDS: ACETAMINOPHEN TAB 500 MG TAB PO SCH ×4 (10:49→19:40)
[2022-03-01] MEDS: SENNOSIDES-DOCUSATE SODIUM 1 EACH TAB PO SCH ×2 (15:46→23:13)
[2022-03-02] MEDS: IBUPROFEN 600 MG TAB PO SCH ×2 (06:57→08:13)
--- NOTE | 2022-03-02 07:24 | P.DS ---
Providers Date of admission: 02/28/22 06:01 Expected date of discharge: 03/02/22 Attending physician: Juju Ashby Primary care physician: Stated None - Discharge Diagnosis(es) (1) Previous section complicating Current Visit: No Status: Acute (2) 39 weeks gestation of Current Visit: No Status: Acute (3) Family planning Current Visit: No Status: Acute Hospital Course: This is a 31-year-old female 4 para 1 at 39-4/7 weeks who presented for repeat low transverse section with bilateral partial salpingectomy. She underwent the above-noted procedure on 02/28/2022 and delivered a viable male with scores of 8 at 1 minute and 9 at 5 minutes and weight 8 pounds. Her postoperative and course has been uncomplicated. Bleeding has been minimal. She is urinating and passing flatus and bowel movement. Baby is breast-feeding. Vital signs are stable. Abdomen is soft with fundus firm and nontender. Positive bowel sounds 4 noted. Incision is clean dry and intact. Extremities show negative Homans. Impression is status post repeat low transverse section with bilateral partial salpingectomy postoperative day #2. Plan is to discharge home today. Routine postoperative and instructions are given. She is advised follow-up in the office in 1-2 weeks for postoperative check and in 6 weeks for check. She is advised to call the office if she has any further questions or concerns prior to her appointment time. She will be given a prescription for ibuprofen and a breast pump. Procedures: Repeat low transverse section with bilateral partial salpingectomy on 02/28/2022 Patient Condition at Discharge: Stable Plan - Discharge Summary Discharge Rx Participant: Yes New Discharge Prescriptions: New Ibuprofen [Motrin] 600 mg PO Q6H #60 tab Continue Vit No.179/Iron/Folic [ Tablet] 1 each PO DAILY Discharge Medication List Vit No.179/Iron/Folic [ Tablet] 1 each PO DAILY 02/20/22 [Histo ry] Ibuprofen [Motrin] 600 mg PO Q6H #60 tab 03/02/22 [Rx] Follow up Appointment(s)/Referral(s): Juju Ashby DO [Doctor of Osteopathic Medicine] - 04/13/22 11:30 am (Post Op Appointment 03-13-2022 at 1:30) Activity/Diet/Wound Care/Special Instructions: Instructions 1. Do not begin any exercise program for 3 weeks. 2. Do not resume sexual relations for 3 weeks or longer if uncomfortable. 3. You may take tub baths or showers at any time. 4. You may use tampons if desired after 3 weeks. 5. Keep the area of episiotomy (stitches) clean and dry. 6. If you are not nursing, wear a good fitting, supportive bra during the day and limit fluid intake for at least 1 week to prevent breast engorgement. 7. Call the office, [phone], within the next week to make appointment for your 6 week checkup if it has not already been made. 8. Report any of the following occurrences to the doctor promptly: a. Heavy, excessive bleeding b. Chills, fever c. Burning or frequency of urination d. Pain or redness and breasts if nursing e. Increasing pain or swelling in episiotomy (stitches). In addition to the above instructions, the following additional should be followed: 1. No heavy lifting or straining (exercising) until after 6 week checkup. 2. Keep abdominal incision clean and dry: You may wear a dressing if more comfortable. 3. Make office appointment for 10 days after going home or as instructed by her doctor. Discharge Disposition: HOME SELF-CARE
[2022-03-02 08:11] VITALS: BP 126/67; PULSE 72; RESP 16; TEMP 97.5
[2022-03-02] MEDS: ACETAMINOPHEN TAB 500 MG TAB PO SCH (08:12)
[2022-03-02] MEDS: SENNOSIDES-DOCUSATE SODIUM 1 EACH TAB PO SCH (08:13)
== END 2022-03-02 11:08 | disposition home or self-care (01) | DRG 785 ==
LOC: 4FBP 06:01
PROVIDERS: ADMIT Obstetrics & Gynecology; ATTEND Obstetrics & Gynecology
PROC: 0UB70ZZ Excision of Bilateral Fallopian Tubes, Open Approach (ICD-10-PCS; 2022-02-28)
PROC: 10D00Z1 Extraction of Products of Conception, Low, Open Approach (ICD-10-PCS; principal; 2022-02-28 08:00)
DX: O34.211 Maternal care for low transverse scar from previous cesarean delivery (principal); Z30.2 Encounter for sterilization; Z37.0 Single live birth; O99.73 Diseases of the skin and subcutaneous tissue complicating the puerperium; L29.9 Pruritus, unspecified; O99.334 Smoking (tobacco) complicating childbirth; F17.290 Nicotine dependence, other tobacco product, uncomplicated; Z3A.39 39 weeks gestation of pregnancy; Z91.013 Allergy to seafood; Z87.59 Personal history of other complications of pregnancy, childbirth and the puerperium
CPT/HCPCS: 85025; 86850; 86900; 86901